=== PATIENT | male | born 1985 | race Caucasian/White ===

== ENCOUNTER 2016-10-14 10:28 | Outpatient (CLI) | payer OTHER | END 2016-10-14 10:29 | disposition home or self-care (01) | DX: R10.11 Right upper quadrant pain (principal); R11.0 Nausea ==

== ENCOUNTER 2017-05-25 14:41 | Emergency (ER) | payer OTHER ==
[2017-05-25 15:29] LABS: BILIRUBIN,DIRECT 0.1 mg/dL (0.1-0.5); BILIRUBIN,TOTAL 0.6 mg/dL (0.2-1.0); BUN - BLOOD UREA NITROGEN 14 mg/dL (6-20); CARBON DIOXIDE - CO2 28 mmol/L (21-32); CHLORIDE 101 mmol/L (101-111); CREATININE 0.9 mg/dL (0.6-1.2); GFR - MDRD 99 (>89); GLUCOSE 96 mg/dL (70-100); POTASSIUM 3.6 mmol/L (3.5-5.0); SALICYLATE < 6.0 mg/dL; SODIUM 137 mmol/L (135-145); TOTAL PROTEIN 7.8 g/dL (6.7-8.2)
[2017-05-25 15:36] LABS: ACETAMINOPHEN < 10 ug/mL (10-30)
--- NOTE | 2017-05-25 17:50 | ED Physician Documentation ---
History of Present Illness - Stated complaint Stated Complaint: VOMITING - Chief complaint Chief Complaint: Abd Pain - Additonal information Additional information: hx from pt and who is POA 31 male has PTSD and his is his POA/guardian apparently pt has a hx of PUD and takes zantac he was out of zantac so his got tylenol for the pain she bough a bottle of 100 325mg tylenol pills one week ago over the next three days the pt took the entire bottle - no to intentioanlly harm himself, just for the ulcer pain he is certain he took the whole bottle he denies taking any other meds at all he also had a beer and a glass of wine in that time frame his realized the bottle was empty three days ago but he had no sx today he has developed RUQ pain and NV so brought in for eval Review of Systems Constitutional: denies: Fever, Chills Throat: denies: Sore throat Cardiac: denies: Chest pain / pressure Respiratory: denies: Dyspnea, Cough GI: reports: Abdominal Pain, Nausea, Vomiting. denies: Diarrhea Endocrine: denies: Easy bruising / bleeding Immunocompromised: denies: Immunocompromised PD PAST MEDICAL HISTORY - Past Medical History Cardiovascular: None Respiratory: None Neuro: None Endocrine/Autoimmune: None GI: GERD : None HEENT: None Psych: Schizophrenia, Panic attacks, ADD/ADHD, Post traumatic stress disorder, Claustrophobia, Obsessive compulsive disorder Musculoskeletal: Chronic back pain Derm: None - Past Surgical History Past Surgical History: Yes Ortho: Amputation Derm: Skin grafts - Present Medications Home Medications: Ambulatory Orders Medication Instructions Recorded Confirmed Pantoprazole [Protonix] 40 mg PO DAILY #20 tablet 07/20/15 05/25/17 Fluphenazine HCl 25 mg INJ ONCE 05/25/17 05/25/17 - Allergies Allergies/Adverse Reactions: Allergies Allergy/AdvReac Type Severity Reaction Status Date / Time No Known Drug Allergies Allergy Verified 07/20/15 19:39 - Social History Does the pt smoke?: Yes Smoking Status: Current every day smoker Does the pt drink ETOH?: Yes Does the pt have substance abuse?: No - Immunizations Immunizations are current?: Yes PD ED PE NORMAL - Vitals Vital signs reviewed: Yes - General General: Alert and oriented X 3 - HEENT HEENT: PERRL - Neck Neck: Supple, no meningeal sign - Cardiac Cardiac: RRR - Respiratory Respiratory: No respiratory distress, Clear bilaterally - Abdomen Abdomen: Other (TTP RUQ s rebound or guarding and neg murphys) - Derm Derm: Normal color (no jaundice) - Neuro Neuro: Alert and oriented X 3 - Psych Psych: Other (denies SI) Results - Vitals Vitals: Vital Signs - 24 hr 05/25/17 05/25/17 15:15 17:50 Temperature 37.0 C 36.9 C Heart Rate 97 77 Respiratory 16 18 Rate Blood Pressure 126/89 H 133/82 H O2 Saturation 99 98 Oxygen O2 Source Room air - Labs Labs: Laboratory Tests 05/25/17 05/25/17 05/25/17 15:09 15:09 18:05 WBC 10.2 RBC 4.87 Hgb 15.6 Hct 46.5 MCV 95.5 H MCH 32.0 H MCHC 33.5 RDW 13.4 Plt Count 362 MPV 8.7 Neut # 5.9 Lymph # 3.1 [place] # 0.8 Eos # 0.3 Baso # 0.1 Absolute Nucleated RBC 0.00 Nucleated RBCs 0.0 Whole Blood INR 1.1 Sodium 137 Potassium 3.6 Chloride 101 Carbon Dioxide 28 Anion Gap 8.0 BUN 14 Creatinine 0.9 Estimated GFR (MDRD) 99 Glucose 96 Calcium 10.0 Magnesium 2.0 Total Bilirubin 0.6 Direct Bilirubin 0.1 AST 20 ALT 37 Alkaline Phosphatase 69 Total Protein 7.8 Albumin 4.6 Globulin 3.2 Salicylates < 6.0 Acetaminophen < 10 L Ethyl Alcohol < 5.0 PD MEDICAL DECISION MAKING - ED course ED course: subacute toxic level apap OD now symptomatic but nl LFTs and INR called poison control and case was discussed with director of community life and recommendation is that if LFTs and INR are normal pt does not need NAC and may be dced home Departure - Departure Disposition: 01 Home, Self Care Clinical Impression: Unintentional Tylenol overdose Condition: Good Instructions: ED Overdose Accidental Follow-Up: [facility] [Provider Group] Comments: The amount of tylenol you took should have been toxic But surprisingly your liver function and coagulation studies are fine Your case with discussed with a director of community life at [facility] Poison Control and they recommend that if your liver and coagulation tests are normal, you do not need to be admitted for the antidote and can be discharged home Please do not take any more tylenol nor drink any alcohol - just take your zantac as prescribed And please follow up with your PMD Monday to get your liver tests and coaguation studies rechecked on Monday - [facility] [place] maybe your doctor can order the tests to be drawn and run here Also your blood pressure was a bit high today so please get that rechecked Return to the ER if worse (more pain or vomiting, yellow skin or eyes, dark urine) Discharge Date/Time: 05/25/17 18:38
[2017-05-25 17:51] VITALS: BP 133/82
[2017-05-25 18:05] LABS: BASOPHILS # (AUTO) 0.1 10^3/uL (0.0-0.1); BASOPHILS % (AUTO) 0.5 %; EOSINOPHILS # (AUTO) 0.3 10^3/uL (0.0-0.7); EOSINOPHILS % (AUTO) 3.2 %; HCT - HEMATOCRIT 46.5 % (42.0-52.0); HGB - HEMOGLOBIN 15.6 g/dL (14.0-18.0); LYMPHOCYTES # (AUTO) 3.1 10^3/uL (1.5-3.5); LYMPHOCYTES % (AUTO) 30.4 %; MEAN CORPUSCULAR HGB CONC 33.5 g/dL (32.0-36.0); MEAN CORPUSCULAR VOLUME 95.5 fL (80.0-94.0); MEAN PLATELET VOLUME 8.7 fL (7.4-11.4); MONOCYTES # (AUTO) 0.8 10^3/uL (0.0-1.0); MONOCYTES % (AUTO) 7.9 %; NEUTROPHILS # (AUTO) 5.9 10^3/uL (1.5-6.6); RED BLOOD COUNT 4.87 10^6/uL (4.70-6.10); RED CELL DISTRIBUTION WIDTH 13.4 % (12.0-15.0); UNCORRECTED WHITE BLOOD COUNT 10.2 x10^3/uL; WHITE BLOOD COUNT 10.2 x10^3/uL (4.8-10.8)
[2017-05-25] MEDS ORDERED: ONDANSETRON ODT 4 MG TABLET TL STA (18:25)
[2017-05-25] MEDS ORDERED: SUCRALFATE 1 GM/10 ML UDC PO STA (18:27)
[2017-05-25] MEDS ORDERED: ACETAMINOPHEN 1,000 MG/100 ML 100 ML IV STA (18:27)
[2017-05-25] MEDS ORDERED: PROMETHAZINE INJ 12.5 MG in SODIUM CHLORIDE 0.9% 50 ML IV STA (18:28)
[2017-05-25] MEDS ORDERED: ONDANSETRON ODT 4 MG TABLET ONE (18:38)
== END 2017-05-25 18:38 | disposition home or self-care (01) ==
LOC: ED 14:41
DX: T39.1X1A Poisoning by 4-Aminophenol derivatives, accidental (unintentional), initial encounter (principal); Y92.019 Unspecified place in single-family (private) house as the place of occurrence of the external cause; Z87.11 Personal history of peptic ulcer disease; F17.200 Nicotine dependence, unspecified, uncomplicated
CPT/HCPCS: 36415; 80048; 80076; 80307; 80320; 80329; 83735; 85025; 85610; 99283; J7040; Q0162

== ENCOUNTER 2017-06-16 17:17 | Emergency (ER) | payer OTHER ==
[2017-06-16 18:18] LABS: BILIRUBIN,URINE NEGATIVE (NEGATIVE); PH,URINE 6.5 PH (5.0-7.5); UA CHARGE (STRIP ONLY) YES; UR CULTURE IF IND NOT INDICATED
--- NOTE | 2017-06-16 19:35 | ED Physician Documentation ---
PD HPI ABD PAIN - Stated complaint Stated Complaint: STOMACH PX - Chief complaint Chief Complaint: Abd Pain - History obtained from History obtained from: Patient, Family () - History of Present Illness Timing - onset: Other (31-year-old with schizophrenia who has had chronic abdominal pain and daily vomiting for years as well as chronic smoker's cough, nothing new or different. He had a unintentional Tylenol overdose recently, at which time his white count was normal, on follow-up routine labs his white count was 21,000 today and he was referred to the emergency department. He denies fevers, chills, weight loss. He has never had an upper endoscopy for his chronic upper abdominal pain and daily vomiting but he does take a PPI. No changes in bowel movements, diarrhea, recent travel. He does have a runny nose but denies any sinus pain or ear pain.) Review of Systems Ten Systems: 10 systems reviewed and negative Constitutional: denies: Fever, Chills, Myalgias, Fatigue Ears: denies: Loss of hearing, Ear pain Nose: denies: Rhinorrhea / runny nose, Congestion Throat: denies: Dental pain / toothache, Sore throat Cardiac: denies: Chest pain / pressure, Palpitations Respiratory: denies: Dyspnea, Cough PD PAST MEDICAL HISTORY - Past Medical History Past Medical History: Yes Cardiovascular: None Respiratory: None Neuro: None Endocrine/Autoimmune: None GI: GERD : None HEENT: None Psych: Schizophrenia, Panic attacks, ADD/ADHD, Post traumatic stress disorder, Claustrophobia, Obsessive compulsive disorder Musculoskeletal: Chronic back pain Derm: None - Past Surgical History Past Surgical History: Yes Ortho: Amputation Derm: Skin grafts - Present Medications Home Medications: Ambulatory Orders Medication Instructions Recorded Confirmed Pantoprazole [Protonix] 40 mg PO DAILY #20 tablet 07/20/15 06/16/17 Fluphenazine HCl 25 mg INJ ONCE 05/25/17 06/16/17 - Allergies Allergies/Adverse Reactions: Allergies Allergy/AdvReac Type Severity Reaction Status Date / Time No Known Drug Allergies Allergy Verified 07/20/15 19:39 - Social History Does the pt smoke?: Yes Smoking Status: Current every day smoker Does the pt drink ETOH?: Yes Does the pt have substance abuse?: No - Immunizations Immunizations are current?: Yes PD ED PE NORMAL - Vitals Vital signs reviewed: Yes - General General: Alert and oriented X 3, No acute distress - HEENT HEENT: PERRL, EOMI, Ears normal, Pharynx benign - Neck Neck: Supple, no meningeal sign, No bony TTP, No adenopathy - Cardiac Cardiac: RRR, No murmur - Respiratory Respiratory: No respiratory distress, Clear bilaterally - Abdomen Abdomen: Normal bowel sounds, Soft, Non tender - Back Back: No CVA TTP, No spinal TTP - Derm Derm: Normal color, Warm and dry - Extremities Extremities: No edema, No calf tenderness / cord - Neuro Neuro: Alert and oriented X 3, Normal speech - Psych Psych: Normal mood, Normal affect Results - Vitals Vitals: Vital Signs - 24 hr 06/16/17 06/16/17 17:49 21:50 Temperature 36.9 C 36.7 C Heart Rate 78 67 Respiratory 14 16 Rate Blood Pressure 119/79 102/58 L O2 Saturation 98 97 Oxygen O2 Source Room air - Labs Labs: Laboratory Tests 06/16/17 06/16/17 06/16/17 18:15 19:53 19:53 WBC 10.3 RBC 4.91 Hgb 15.7 Hct 46.5 MCV 94.7 H MCH 32.0 H MCHC 33.8 RDW 12.9 Plt Count 293 MPV 8.4 Neut # 6.1 Lymph # 3.5 [place] # 0.4 Eos # 0.3 Baso # 0.0 Absolute Nucleated RBC 0.01 Nucleated RBCs 0.1 Sodium Potassium Chloride Carbon Dioxide Anion Gap BUN Creatinine Estimated GFR (MDRD) Glucose Lactic Acid Calcium Total Bilirubin AST ALT Alkaline Phosphatase Total Protein Albumin Globulin Albumin/Globulin Ratio Lipase Urine Color YELLOW Urine Clarity CLEAR Urine pH 6.5 Ur Specific [place] 1.010 Urine Protein NEGATIVE Urine Glucose (UA) NEGATIVE Urine Ketones NEGATIVE Urine Occult Blood NEGATIVE Urine Nitrite NEGATIVE Urine Bilirubin NEGATIVE Urine Urobilinogen 0.2 (NORMAL) Ur Leukocyte Esterase NEGATIVE Ur Microscopic Review NOT INDICATED Urine Culture Comments NOT INDICATED H. pylori IgG Antibody Negative 06/16/17 06/16/17 19:53 20:10 WBC RBC Hgb Hct MCV MCH MCHC RDW Plt Count MPV Neut # Lymph # [place] # Eos # Baso # Absolute Nucleated RBC Nucleated RBCs Sodium 139 Potassium 3.6 Chloride 105 Carbon Dioxide 26 Anion Gap 8.0 BUN 12 Creatinine 1.0 Estimated GFR (MDRD) 88 L Glucose 105 H Lactic Acid 0.7 Calcium 9.5 Total Bilirubin 0.6 AST 27 ALT 50 Alkaline Phosphatase 74 Total Protein 7.8 Albumin 4.7 Globulin 3.1 Albumin/Globulin Ratio 1.5 Lipase 33 Urine Color Urine Clarity Urine pH Ur Specific [place] Urine Protein Urine Glucose (UA) Urine Ketones Urine Occult Blood Urine Nitrite Urine Bilirubin Urine Urobilinogen Ur Leukocyte Esterase Ur Microscopic Review Urine Culture Comments H. pylori IgG Antibody - Rads (name of study) 2v chest Radiology: EMP read contemporaneously (Bronchial wall thickening without pneumonia) CT abdomen and pelvis Radiology: EMP read contemporaneously (Fatty liver, bibasilar atelectasis, moderate stool in the colon, possible wall thickening in the distal esophagus) PD MEDICAL DECISION MAKING - ED course ED course: 31-year-old has basically chronic complaints of abdominal pain and nausea, sounds like gastritis/GERD/esophagitis. He was referred in with a white count of 21,000. Workup was undertaken given this to look for infection, but now his white count was 10,000, back to normal which I do not have an explanation for in the rest of his workup was without significant evidence of acute infection. I do think he probably needs to continue his PPI and talk with his doctor about an upper endoscopy. Departure - Departure Disposition: 01 Home, Self Care Clinical Impression: Cough Abdominal pain Qualifiers: Abdominal location: epigastric Qualified Code(s): R10.13 - Epigastric pain Leukocytosis Qualifiers: Leukocytosis type: leukemoid reaction Qualified Code(s): D72.823 - Leukemoid reaction Condition: Good Record reviewed to determine appropriate education?: Yes Instructions: ED PUD Vs Gastritis Comments: Discuss your chronic upper abdominal pain with your physician, I recommend discussing an upper endoscopy. As noted your white blood cell count is back to normal for us.
[2017-06-16 20:06] LABS: BASOPHILS % (AUTO) 0.4 %; EOSINOPHILS # (AUTO) 0.3 10^3/uL (0.0-0.7); EOSINOPHILS % (AUTO) 2.6 %; HCT - HEMATOCRIT 46.5 % (42.0-52.0); HGB - HEMOGLOBIN 15.7 g/dL (14.0-18.0); LYMPHOCYTES # (AUTO) 3.5 10^3/uL (1.5-3.5); LYMPHOCYTES % (AUTO) 33.8 %; MEAN CORPUSCULAR HGB CONC 33.8 g/dL (32.0-36.0); MEAN CORPUSCULAR VOLUME 94.7 fL (80.0-94.0); MEAN PLATELET VOLUME 8.4 fL (7.4-11.4); MONOCYTES # (AUTO) 0.4 10^3/uL (0.0-1.0); NEUTROPHILS # (AUTO) 6.1 10^3/uL (1.5-6.6); NEUTROPHILS % (AUTO) 59.2 %; NUCLEATED RED BLOOD CELLS AUTO 0.1 /100WBC; RED BLOOD COUNT 4.91 10^6/uL (4.70-6.10); RED CELL DISTRIBUTION WIDTH 12.9 % (12.0-15.0); UNCORRECTED WHITE BLOOD COUNT 10.3 x10^3/uL; WHITE BLOOD COUNT 10.3 x10^3/uL (4.8-10.8)
[2017-06-16 20:10] LABS: H. PYLORI IGG ANTIBODY Negative (Negative); HPYLORI NEG QC Negative (Negative); HPYLORI POS QC POSITIVE (Positive)
[2017-06-16 20:14] LABS: ALBUMIN/GLOBULIN RATIO 1.5 (1.0-2.2); BILIRUBIN,TOTAL 0.6 mg/dL (0.2-1.0); CALCIUM 9.5 mg/dL (8.5-10.3); POTASSIUM 3.6 mmol/L (3.5-5.0); TOTAL PROTEIN 7.8 g/dL (6.7-8.2)
[2017-06-16] MEDS ORDERED: IOPAMIDOL-300 100 ML VIAL ONE (21:19)
--- NOTE | 2017-06-16 21:32 | XRAY Preliminary Report ---
Exam: XR Chest 2 View PA/LAT IMPRESSION: 1. Bronchial wall thickening. Nonspecific finding could represent bronchitis or reactive airways dise ase. 2. No consolidation. 3. No pneumothorax or effusion. [facility] SITE ID: [id number]
[2017-06-16] MEDS ORDERED: IOPAMIDOL-300 100 ML VIAL IVP ONE (21:39)
--- NOTE | 2017-06-16 21:45 | XRAY Report ---
EXAM: CHEST RADIOGRAPHY EXAM DATE: 06/16/2017 08:37 PM. CLINICAL HISTORY: Unexplained leukocytosis. COMPARISON: 07/20/2015. TECHNIQUE: 2 views. FINDINGS: Lungs/Pleura: Interstitial prominence noted. Bronchial wall thickening is also noted in the left hilu m. No consolidation, effusions, or pneumothorax. Mediastinum: Heart and mediastinal contours are unremarkable. Other: None. IMPRESSION: 1. Bronchial wall thickening. Nonspecific finding could represent bronchitis or reactive airways dise ase. 2. No consolidation. 3. No pneumothorax or effusion. [facility] Referring Provider Line: [phone] SITE ID: [id number]
[2017-06-16 21:52] VITALS: BP 102/58
--- NOTE | 2017-06-16 22:12 | CT Preliminary Report ---
Exam: CT Abdomen/Pelvis W/ IMPRESSION: 1. No acute inflammatory or obstructive process seen in abdomen or pelvis. 2. Fatty liver. 3. Bibasilar atelectasis or infiltrate. 4. Moderate stool in the colon. 5. Possible wall thickening in the distal esophagus. Correlate for any symptoms of esophagitis. [facility] SITE ID: [id number]
--- NOTE | 2017-06-16 22:15 | CT Report ---
EXAM: CT ABDOMEN AND PELVIS EXAM DATE: 06/16/2017 09:44 PM. CLINICAL HISTORY: Abdominal pain and leukocytosis. Nausea and vomiting. COMPARISONS: None. TECHNIQUE: Routine helical CT imaging was performed through the abdomen and pelvis. IV contrast: Anitha onic. Enteric contrast: No. Reconstructions: Coronal and sagittal. In accordance with CT protocol optimization, one or more of the following dose reduction techniques w ere utilized for this exam: automated exposure control, adjustment of mA and/or KV based on patient s ize, or use of iterative reconstructive technique. FINDINGS: Lung Bases: Bibasilar atelectasis or infiltrate. Possible wall thickening in the distal esophagus. Liver: Fatty infiltration. Gallbladder/Bile Ducts: Unremarkable. Spleen: Normal. Pancreas: Normal. Adrenal Glands: Normal. Kidneys: Normal. No masses or hydronephrosis. Peritoneal Cavity/Bowel: Moderate stool in the colon. No diverticulitis. No bowel obstruction seen. N o free air or free fluid. No lymphadenopathy. Appendix appears normal. Pelvic Organs: Normal. The bladder and visualized pelvic organs are within normal limits. Vasculature: No aneurysms or other significant abnormality. Bones: No significant abnormality. Other: None. IMPRESSION: 1. No acute inflammatory or obstructive process seen in abdomen or pelvis. 2. Fatty liver. 3. Bibasilar atelectasis or infiltrate. 4. Moderate stool in the colon. 5. Possible wall thickening in the distal esophagus. Correlate for any symptoms of esophagitis. [facility] Referring Provider Line: [phone] SITE ID: [id number]
== END 2017-06-16 22:30 | disposition home or self-care (01) ==
LOC: ED 17:17
DX: R05 Cough (principal); R10.13 Epigastric pain; D72.823 Leukemoid reaction; F17.200 Nicotine dependence, unspecified, uncomplicated
CPT/HCPCS: 36415; 71020; 74177; 80053; 81003; 83605; 83690; 85025; 87339; 99283; Q9967; 81001; 87086